=== PATIENT | male | born 1990 | race Hispanic/Latino ===

== ENCOUNTER 2018-07-31 13:34 | Emergency (ER) | payer SELFPAY | END 2018-07-31 14:51 | disposition home or self-care (01) | LOC: ERS 13:34 | DX: M76.812 Anterior tibial syndrome, left leg (principal); M76.811 Anterior tibial syndrome, right leg; F17.210 Nicotine dependence, cigarettes, uncomplicated | CPT/HCPCS: 99281 ==

== ENCOUNTER 2019-04-08 20:14 | Emergency (ER) | payer SELFPAY ==
[2019-04-08 20:51] LABS: #Eosinphils 0.1 thou/uL (0.0-0.7); #Lymphocytes 1.5 thou/uL (1.20-3.40); #Monocytes 0.7 thou/uL (0.11-0.59); #Neutrophils 3.5 thou/uL (1.40-6.50); %Basophils 0.3 % (0.0-1.0); %Lymphocytes 26.1 % (21.0-51.0); %Monocytes 11.5 % (0.0-10.0); %Neutrophils 61.1 % (42.0-75.0); Hemoglobin 17.1 g/dL (14.0-18.0); Mean Corpuscular HGB CONC 35.1 g/dL (32.0-36.0); Mean Corpuscular Hemoglobin 31.3 pg (27.0-31.0); Mean Corpuscular Volume 89.1 fL (78.0-98.0); Mean Platelet Volume 8.7 fL (7.4-10.4); Platelet Count 140 thou/uL (130-400); RBC Distribution Width 11.2 % (11.5-14.5); Red Blood Cell (RBC) Count 5.46 mill/uL (4.70-6.10); White Blood Cell (WBC) Count 5.8 thou/uL (4.8-10.8)
[2019-04-08 21:10] LABS: ALT (SGPT) 21 U/L (8-55); AST (SGOT) 26 U/L (5-34); Albumin 4.6 g/dL (3.5-5.0); Alkaline Phosphatase 64 U/L (40-110); Anion Gap 15 mmol/L (10-20); BUN (Urea Nitrogen) 18 mg/dL (8.9-20.6); Bilirubin, Total 0.8 mg/dL (0.2-1.2); Calc. Creatinine Clearance 0 mL/min (70-130); Calcium 9.2 mg/dL (7.8-10.44); Carbon Dioxide 24 mmol/L (22-29); Chloride 102 mmol/L (98-107); Estimated GFR-MDRD 76; Globulin 3.2 g/dL (2.4-3.5); Glucose 93 mg/dL (70-105); Potassium 3.7 mmol/L (3.5-5.1); Protein, Total 7.8 g/dL (6.0-8.3); Sodium 137 mmol/L (136-145)
--- NOTE | 2019-04-08 21:14 | RAD ---
TWO VIEW CHEST: Comparison: 02-04-15 Indication: Vomiting, cough. FINDINGS: No evidence of consolidation, effusion, or pneumothorax. Cardiac silhouette is normal in size. Osseou s structures are intact. IMPRESSION: No focal consolidation. POS: [id number]
[2019-04-08] MEDS ORDERED: Ibuprofen 800 MG TAB ONE (21:31)
[2019-04-08] MEDS ORDERED: Ondansetron ODT 4 MG TAB ONE (21:31)
[2019-04-08] MEDS ORDERED: Acetaminophen 500 MG TAB ONE (21:31)
== END 2019-04-08 22:50 | disposition home or self-care (01) ==
LOC: ERS 20:14
DX: J10.1 Influenza due to other identified influenza virus with other respiratory manifestations (principal); R11.2 Nausea with vomiting, unspecified; F17.210 Nicotine dependence, cigarettes, uncomplicated
CPT/HCPCS: 36415; 71046; 80053; 85025; 87804; Q0162